=== PATIENT | female | born 1980 | race Caucasian/White ===

== ENCOUNTER 2020-11-05 12:17 | Outpatient (REF) | payer OTHER, SELFPAY ==
--- NOTE | 2020-11-05 13:34 | XR_ITS ---
EXAMINATION: CERVICAL AND LUMBAR SPINE. CLINICAL INFORMATION: Neck pain and back pain. COMPARISON: None TECHNIQUE: Lumbar spine 3 views. Cervical spine 4 views. FINDINGS: CERVICAL SPINE: There is mild straightening of cervical lordosis. There is loss of C5-C6 and C6-C7 disc heights with mild ventral spondylosis. No lytic or sclerotic process seen. No visible acute fracture or dislocation seen. The prevertebral and paravertebral soft tissues are normal. LUMBAR SPINE: There is maintained lumbar lordosis. The vertebral heights, alignment and disc heights are normal. There is mild ventral spondylosis L2-L3 and L3-L4 disc level. No visible acute fracture, dislocation or lytic process seen. The soft tissues are normal. XR/XR cervical spine 2V IMPRESSION: Mild straightening of cervical lordosis with degenerative disc changes C5-C6 and C6-C7 disc levels with moderate ventral spondylosis. Mild ventral spondylosis L2-L3 and L3-L4 disc levels. Otherwise unremarkable lumbar spine exam
--- NOTE | 2020-11-05 13:34 | XR_ITS ---
EXAMINATION: CERVICAL AND LUMBAR SPINE. CLINICAL INFORMATION: Neck pain and back pain. COMPARISON: None TECHNIQUE: Lumbar spine 3 views. Cervical spine 4 views. FINDINGS: CERVICAL SPINE: There is mild straightening of cervical lordosis. There is loss of C5-C6 and C6-C7 disc heights with mild ventral spondylosis. No lytic or sclerotic process seen. No visible acute fracture or dislocation seen. The prevertebral and paravertebral soft tissues are normal. LUMBAR SPINE: There is maintained lumbar lordosis. The vertebral heights, alignment and disc heights are normal. There is mild ventral spondylosis L2-L3 and L3-L4 disc level. No visible acute fracture, dislocation or lytic process seen. The soft tissues are normal. XR/XR lumbar spine 2-3V IMPRESSION: Mild straightening of cervical lordosis with degenerative disc changes C5-C6 and C6-C7 disc levels with moderate ventral spondylosis. Mild ventral spondylosis L2-L3 and L3-L4 disc levels. Otherwise unremarkable lumbar spine exam
[2020-11-05 14:30] LABS: MANUAL DIFF FLAG NO
[2020-11-05 14:33] LABS: Basophils Percent Auto 0.7 % (0-2); Eosinophils Absolute Auto 0.1 X10*3/uL (0.0-0.4); Eosinophils Percent Auto 2.4 % (0-4); Hemoglobin 13.7 g/dl (12.0-16.0); Imm Gran Abs Auto 0.01 X10*3/uL (0.00-0.03); Imm Gran Pct Auto 0.2 % (0.0-0.4); Lymphocytes Percent Auto 51.7 % (20-40); Mean Corpuscular HGB Conc 33.4 g/dl (31.0-35.0); Mean Corpuscular Volume 89.7 fL (80-98); Mean Platelet Volume 10.5 fL (9.4-12.3); Monocytes Absolute Auto 0.3 X10*3/uL (0.1-1.2); Monocytes Percent Auto 5.6 % (2-11); Neutrophils Absolute Auto 2.3 X10*3/uL (2.0-8.3); Neutrophils Percent Auto 39.4 % (45-73); Platelet Count 365 X10*3/uL (160-400); Red Blood Count 4.57 X10*6/uL (4.20-5.50); Red Cell Distribution Width 12.8 % (11.0-16.0); White Blood Count 5.9 X10*3/uL (4.8-10.8)
[2020-11-05 15:07] LABS: Alanine Aminotransferase 29 U/L (0-31); Albumin Level 4.1 g/dL (3.5-5.0); Alkaline Phosphatase 74 U/L (39-117); Anion Gap 13 (12-20); Aspartate Amino Transferase 20 U/L (5-31); Bilirubin Total 0.5 mg/dL (0.0-1.0); Blood Urea Nitrogen 9 mg/dL (9-16); C Reactive Protein 0.56 mg/dL (< or = 0.50); Calcium 8.9 mg/dL (8.4-10.2); Carbon Dioxide 20 mmol/L (22-29); Chloride 108 mmol/L (96-108); Estimated Glomerular Filt Rate > 60; Glucose Random 85 mg/dL (60-115); Potassium 4.4 mmol/l (3.3-5.1); Rheumatoid Factor < 15.0 IU/mL (<15.0); Sodium 137 mmol/L (135-145); Total Protein 8.4 g/dL (6.5-8.0)
[2020-11-05 15:19] LABS: Erythrocyte Sedimentation Rate 38 MM/HR (0-20)
[2020-11-07 11:17] LABS: Antibody to SS-A Antigen <1.0 NEG AI (<1.0 NEG); Antibody to SS-B Antigen <1.0 NEG AI (<1.0 NEG)
[2020-11-07 12:03] LABS: Cyclic Citrullinated Peptide <16 UNITS
[2020-11-07 13:37] LABS: Anti Nuclear Antibody Screen NEGATIVE (NEGATIVE)
[2020-11-10 13:32] LABS: Vitamin D 25-OH, D2 <4 ng/mL; Vitamin D 25-OH, D3 33 ng/mL; Vitamin D 25-OH, Total 33 ng/mL (30-100)
== END 2020-11-05 12:18 | disposition home or self-care (01) ==
LOC: HO.LAB 12:17
PROVIDERS: PCP Internal Medicine; Referring Provider Internal Medicine; Visit Provider Student in an Organized Health Care Education/Training Program
DX: M25.50 Pain in unspecified joint (principal)
CPT/HCPCS: 36415; 72040; 72100; 80053; 82306; 85025; 85652; 86038; 86039; 86140; 86200; 86235; 86431

== ENCOUNTER → 2020-11-27 16:08 | Outpatient (BNVA) | payer OTHER, SELFPAY | PROVIDERS: PCP Internal Medicine; Visit Provider Student in an Organized Health Care Education/Training Program ==

== ENCOUNTER 2020-12-19 09:45 | Outpatient (REF) | payer OTHER, SELFPAY ==
--- NOTE | 2020-12-19 09:49 | EMG_ITS ---
Right median and ulnar motor and sensory studies were performed. Right radial sensory study was performed and paraspinal muscles were tested with a needle. IMPRESSION: Unremarkable study with no evidence of median or ulnar neuropathy or radiculopathy. MD KRYSTA Beltre/RADHA / [id number]
== END 2020-12-19 09:46 | disposition home or self-care (01) ==
LOC: HO.NEURO 09:45
PROVIDERS: Visit Provider Student in an Organized Health Care Education/Training Program
DX: M25.50 Pain in unspecified joint (principal)
CPT/HCPCS: 95886; 95909